=== PATIENT | male | born 1980 | race African-American/Black ===

== ENCOUNTER → 2018-06-16 17:03 | Outpatient (CLI) | payer BC, SELFPAY ==
[2018-06-16 16:45] VITALS: BMI 25.4
[2018-06-16 19:04] LABS: HIV - WCH Non-Reactive (Nonreactive)
[2018-06-17 09:42] LABS: Chlamydia Trachomatis by PCR Negative (Negative); Neisserai gonorrhoeae by PCR Negative (Negative); Probe Check PASS; Sample Adequacy Control PASS; Specimen Processing Control PASS
[2018-06-20 03:25] LABS: HSV 1 By PCR Negative (Negative)
[2018-06-20 10:44] LABS: HSV 2 By PCR Negative (Negative)
--- OUTSIDE RECORDS SUMMARY | 2018-09-20 07:28 | XMS RPT_ITS ---
:1980 Author Organization OHIP Care Team Providers Name Role Phone KEMAR SANTOS MD Attending Unavailable PHYSICIAN, NONE Primary Care Unavailable Lv Abbott Attending Unavailable Luis Abbott Referring Unavailable Lv Abbott Attending Unavailable Lv Abbott Referring Unavailable Primay Care Physicia, No Primary Care Unavailable PROBLEMS PROBLEMS DATE TYPE CONDITION / CODE ATTENDING STATUS SOURCE 06/16/2018 Unknown Z71.1 - Person Lv Abbott Active Rachel with [facility] in whom no Repository diagnosis is made / Z71.1(ICD-10) PROCEDURES PROCEDURES No Procedure Records FoundRESULTS RESULTS HIV - [facility] Collected: 06/16/2018 Status: F Source: [place] 5:10 PM [facility] REPOSITORY TYPE CODE TESTS RESULT OUT OF RANGE REFERENCE UNITS LAB L3890.6005 Nonreactive Normal HIV - [facility] Non-Reactive Performed By: #### L3890.6005 #### [facility] [address] [place], [address] CT/NG [facility] BY PCR Collected: 06/16/2018 Status: F Source: [place] 5:10 PM [facility] REPOSITORY TYPE CODE TESTS RESULT OUT OF RANGE REFERENCE UNITS LAB L8200.2100 Negative Normal Chlam Negative Trac PCR LAB L8200.2200 Negative Normal NG by Negative PCR Performed By: #### L8200.2000 #### [facility] [address] [place], [address] HSV 1/2 BY PCR Collected: 06/16/2018 Status: F Source: [place] 5:10 PM [facility] REPOSITORY TYPE CODE TESTS RESULT OUT OF RANGE REFERENCE UNITS LAB L3400.1650 Negative Normal HSV 1 Negative BY PCR LAB L3400.1655 Negative Normal HSV 2 Negative BY PCR Result Comment: This test was developed and its performance characteristics determined by [employer]. It has not been cleared or approved by the U.S. Food and Drug Administration. The FDA has determined that such clearance or approval is not necessary. This test is used for clinical purposes. It should not be regarded as investigational or research. Performed at: [address] [id number] Clinical Informaticist: Juan Ruiz MD, Phone: [phone] Performed By: #### L3400.1645 #### [facility] (refer to report for specific site) refer to report for address and phone number URGENT CARE VISIT Observed: 06/16/2018 Status: F Source: [place] REPORT 5:03 PM [facility] REPOSITORY [facility] [address] [place] [address] [address] [place] [address] OFFICE VISIT Date of Service: 06/16/18 MR#: [id number] Acct: [id number] Name: SY VENTURA Rep #: [id number] : 1980 Provider: Lv WILSON Age/Sex: 37/M Location: [facility] Status: Signed Intake Vital Signs06/16/18 Height 5 ft 8 in Intake Visit Reasons: testing Chief Complaint: STI Inside Sales Account Representative Required: No Accompanied by: Self Is patient in pain?: No Allergies No Known Allergies Allergy (Unverified 06/16/18 16:46) Medications NK 06/16/18 [History Confirmed 06/16/18] HPI HPI Chief Complaint: STI Details: SY VENTURA, is a 37 M who presents to the office today for request to be tested for STI's. Patient states that he has had no known interactions with people with STI's however states that approximate 1 month ago he did have a genital area rash. He states that this rash occurred just after shaving the area and describes it as red bumps that appeared almost like pimples. He denies having any previous STI's and has no current genital drainage, itching, burning or other symptoms of STI's. ROS Const Constitutional: No chills, fever(s), fatigue or abnormal sleep pattern Skin Skin: No wounds or lesions Neuro Neurology: No behavioral changes or confusion Psych Psychiatric: No behavioral changes, No confusion, No abnormal sleep pattern Endo Endocrine: No fatigue Exam Const General: cooperative, healthy appearing Other: exam deferred as patient is not currently having any symptoms. Skin General: no rashes or lesions noted Neuro General: alert, CN's II-XI intact bilaterally Psych Appearance: grossly normal Mental Status: mental status grossly normal Assessment AND Plan Problems 1. Concern about STD in male without diagnosis Z71.1 Status Acute Plan Patient advised of safe sex practices. Patient advised that he will be notified of any positive results as well as any potential red flags and when appropriate to report to the ED. Patient verbalized understanding and agreement with all the above. Orders Orders: Coding Level of Care Code Off vis,new,level 3 Diagnoses Concern about STD in male without diagnosis Z71.1 06/16/18 1703 <Electronically signed by Lv WILSON> Date Lv WILSON Cosigner Signature: Date (if applicable) CC: ALLERGIES ALLERGIES DATE TYPE / CODE NAME / CODE REACTION SEVERITY SOURCE 06/16/2018 Drug No Known Unknown [facility] Allergy/4160 Allergies/F00 Hospital 34039(SNOMED [id number](RXNOR Repository CT) M) ENCOUNTERS ENCOUNTERS ADMIT/DISCHARGE ACCOUNT NUMBER ADMITTING ENCOUNTER LOCATION SOURCE CLASS 06/16/2018 [id number] Ambulatory [facility] ding:MTLAB Repository 06/16/2018/06/16/20 [id number] Ambulatory BMSBuilding: [address] Repository 04/11/2018/10/09 [id number] Emergency BBuilding:[place] [address] O [facility] Repository PAYERS PAYERS ENCOUNTER GUARANTOR PAYER SUBSCRIBER SOURCE 06/16/2018 SY ADELAIDA Primary SY ADELAIDA [place] [id number] Insurance:ANTHEMPolic BULLARDDOB: Community TOMASA y Number: [id number] [place], [place] [id number] Repository 435[address]Zvv: ([phone]) Date:[id number] [phone] () [address] [place] [id number]: 06/16/2018 Secondary NOT GIVENUNK Rachel Insurance:SELF PAY [facility] Number: Effective Repository Date:2018-06-16 06/16/2018 SY ADELAIDA Primary SY ADELAIDA [place] [id number] Insurance:ANTHEMPolic BULLARDDOB: Community TOMASA y Number: [id number] [place], [place] [id number] Repository [address]Nfu: ([phone]) Date:[id number] [phone] () [id number] [place] [id number]: 06/16/2018 Secondary NOT GIVENUNK [place] Insurance:SELF PAY [facility] Number: Effective Repository Date:2018-06-16 04/11/2018 On license of [facility] BULLARDDOB: Insurance:MAST BULLARDDOB: [facility] MEDICAIDPolicy [id number] Repository tomasa Number: [address] [place], [place] [id number] [place], [place] [address]Rrp: ([phone]) Date:2018-04-11 [id number]: () [id number] [phone] Name:JOSEY Gilman ()Tel: [phone] ClaimLong [id number] () [place], [place] [address]BK:
== END ==
PROVIDERS: Referring Provider Physician Assistant Surgical; Visit Provider Physician Assistant Surgical
DX: Z71.1 Person with feared health complaint in whom no diagnosis is made (principal)
CPT/HCPCS: 36415; 86703; 87491; 87529; 87591

== ENCOUNTER → 2019-11-06 16:37 | Outpatient (CLI) | payer BC, SELFPAY ==
[2019-11-06 16:21] VITALS: BMI 25.4
[2019-11-10 12:07] LABS: HSV 1 By PCR Negative (Negative)
[2019-11-10 12:17] LABS: HSV 2 By PCR Negative (Negative)
== END ==
PROVIDERS: Referring Provider Physician Assistant Surgical; Visit Provider Physician Assistant Surgical
DX: Z71.1 Person with feared health complaint in whom no diagnosis is made (principal)
CPT/HCPCS: 36415; 87529

== ENCOUNTER → 2020-10-20 17:48 | Outpatient (CLI) | payer BC, SELFPAY ==
[2020-10-20 17:50] LABS: Bacteria 0 SEEN /hpf (None Seen); Mucous, Urine 0 SEEN /hpf (<or=2+); Red Blood Cells-Urine 0 SEEN /hpf (0-5); White Blood Cells 0 SEEN /hpf (0-5)
[2020-10-20 17:57] LABS: Color, Urine Yellow (Yellow); Glucose, Dipstick Normal (Normal); Ketone-Dipstick Negative (Negative); Leukocyte Esterase-Dipstick Negative /ul (Negative); Nitrite-Dipstick Negative (Negative); Occult Blood-Urine Negative /ul (Negative); Protein-Dipstick Negative (Negative); Specific Gravity, Urine 1.015 (1.002-1.030); Urine Bilirubin Dipstick Negative (Negative); Urine Clarity Sl. Cloudy (Clear); Urine Urobilinogen Normal (Normal)
[2020-10-20 18:20] LABS: Squamous Epithelial Cells - UA 0-5 SEEN /hpf (0-5)
[2020-10-20 19:32] LABS: Chlamydia Trachomatis by PCR Negative (Negative); Neisserai gonorrhoeae by PCR Negative (Negative); Probe Check PASS; Sample Adequacy Control PASS; Specimen Processing Control PASS
== END ==
PROVIDERS: Visit Provider Physician Assistant Surgical
DX: Z71.1 Person with feared health complaint in whom no diagnosis is made (principal)
CPT/HCPCS: 81001; 87086; 87491; 87591

== ENCOUNTER → 2020-10-21 13:29 | Outpatient (CLI) | payer BC, SELFPAY ==
[2020-10-21 16:40] LABS: HIV - WCH Non-Reactive (Nonreactive)
[2020-10-24 20:08] LABS: HSV 1 By PCR Negative (Negative)
[2020-10-24 20:17] LABS: HSV 2 By PCR Negative (Negative)
== END ==
PROVIDERS: Referring Provider Physician Assistant Surgical; Visit Provider Physician Assistant Surgical
DX: Z71.1 Person with feared health complaint in whom no diagnosis is made (principal)
CPT/HCPCS: 36415; 86703; 87529